=== PATIENT | female | born 1970 | race Caucasian/White ===

== ENCOUNTER 2025-07-08 01:00 | Emergency (ER) | payer MEDICAID, SELFPAY ==
[2025-07-08 01:02] VITALS: BP 139/103; PULSE 83; RESP 16; TEMP 36.8; O2SAT 96; BMI 62.4
--- NOTE | 2025-07-08 02:51 | EDS_ITS ---
HPI History of Present Illness Chief Complaint: Dental Narrative Narrative: Patient was seen and examined after presenting to ED for dental pain and swelling patient has an upcoming dentist appointment this week she states that she has poor dentition. [facility] Medical History LVE (left ventricular enlargement) Leaky heart valve Home Medications ?Medication ?Instructions ?Recorded ?Last Taken ?Type amoxicillin 875 mg-potassium 875 mg PO Q12H #20 TABLET S 07/08/25 Unknown Rx clavulanate 125 mg tablet Allergy/AdvReac Type Severity Reaction Status Date / Time No Known Allergies Allergy Verified 07/08/25 01:06 Social History Smoking Status: Current every day smoker tobacco type: cigarettes ROS ROS ED ROS Narrative Pertinent Positives: Dental pain some facial swelling upcoming dentist appointment Pertinent Negatives: Fevers chills vomiting vision changes purulent drainage The remainder of review of systems negative unless otherwise stated in the HPI above. Systems reviewed including constitutional, psychiatric, cardiovascular, respiratory, integument, HENT, gastrointestinal. EXAM Physical Exam Narrative Exam Narrative: Patient is afebrile hemodynamically stable does not appear toxic or in distress she does have some mild swelling involving her left cheek no overlying erythema vesicular lesions crepitus or other necrotizing appearance no evidence of trench mouth but she definitely has very poor dentition no apical or periapical abscesses noted no lingual or sublingual edema or uvular deviation or enlargement no evidence of a retroperitoneal abscess Const Vital Signs: 07/08/25 01:02 Temperature 98.3 F Temperature Source Oral Pulse Rate 83 Respiratory Rate 16 Blood Pressure 139/103 H Blood Pressure Mean 115 Pulse Ox 96 Oxygen Delivery Method Room Air MDM MDM MDM Narrative Medical decision making narrative: Nursing notes, triage notes, available previous documentation, and vital signs were reviewed. Any discrepancies noted were addressed. Differential Diagnoses: Dental caries with dental infection this is not trench mouth this is not Yonas's angina or deep space neck infection or retropharyngeal abscess Interventions: Antibiotics Given: Augmentin Previous Documentation Reviewed: None available or applicable at this time. ED Course: Patient presenting with symptoms as stated above she has very poor dentition with likely underlying dental infection no need for labs or imaging at this point in time she does not have any airway compromise she has no stridor no wheezing no other evidence of respiratory distress she has normal range of motion of her head and neck as well patient will be given dose of Augmentin here a prescription for the same she has an upcoming dentist appointment this week that she can follow-up with them regarding this. Return precautions and follow- up recommendations provided she is stable for discharge home. This note was made utilizing voice recognition software. All attempts were made to correct spelling or other errors prior to note completion. However, due to the fast-paced nature of emergency medicine, some errors may still be present. Discharge Plan Triage Chief Complaint: Dental ED Provider: Hermila Ashley Dx/Rx/DC Orders Clinical Impression: Dental caries, Dental infection, Facial swelling Instructions: ED Dental Pain Prescriptions: New amoxicillin-pot clavulanate 875-125 mg tablet 875 mg PO Q12H Qty: 20 0RF Primary Care Provider: Aditi Cooper NP Referrals: Aditi Cooper NP, [facility] [Primary Care Provider, Family Practice] Activity Restrictions/Additional Instructions: Take the antibiotics to completion if you are rapidly getting worse or the swelling is getting worse or you are having trouble breathing please return otherwise follow-up with your dentist Print Language: Thai Disposition Disposition: Home, Self Care
[2025-07-08 03:01] VITALS: BP 129/89; PULSE 83; RESP 16; TEMP 36.8; O2SAT 96
== END 2025-07-08 03:03 | disposition home or self-care (01) ==
PROVIDERS: Emergency Provider Specialist/Technologist Athletic Trainer; PCP Nurse Practitioner Family; Visit Provider Specialist/Technologist Athletic Trainer
DX: K04.7 Periapical abscess without sinus (principal); K02.9 Dental caries, unspecified; F17.210 Nicotine dependence, cigarettes, uncomplicated
CPT/HCPCS: 99282